=== PATIENT | female | born 1945 | race Caucasian/White ===

== ENCOUNTER 2021-11-16 20:13 | Emergency (ER) | payer OTHER ==
[2021-11-16] MEDS ORDERED: ONDANSETRON 4 MG (ODT) TAB ONE (22:09)
[2021-11-16 23:16] LABS: Urine Blood Negative (Negative); Urine Glucose Negative (Negative); Urine Protein Negative (Negative); Urine Specific Gravity 1.015 (1.005-1.030)
[2021-11-16] MEDS ORDERED: FAMOTIDINE 20 MG/2 ML VIAL IV ONE (23:26)
[2021-11-16] MEDS ORDERED: ONDANSETRON 4 MG/2 ML VIAL ONE (23:26)
[2021-11-16 23:31] LABS: Absolute Lymphocytes (CBC) 0.8 K/uL (0.7-4.9); Hematocrit 39.1 % (36.0-45.0); Lymphocytes % 8.5 % (15.3-44.8); MPV 7.8 fL (7.6-11.3); RBC Red Blood Cell Count 4.83 M/uL (3.86-4.86)
[2021-11-16 23:37] LABS: Protime INR 1.04
[2021-11-16 23:38] LABS: Barbiturates NEGATIVE (NEGATIVE); Benzodiazepines NEGATIVE (NEGATIVE); Cocaine NEGATIVE (NEGATIVE); METHAMPHETAM NEGATIVE (NEGATIVE); Methadone NEGATIVE (NEGATIVE); Opiates NEGATIVE (NEGATIVE); Phencyclidine NEGATIVE (NEGATIVE); THC Cannibis NEGATIVE (NEGATIVE)
[2021-11-16 23:51] LABS: ALT/SGPT 20 U/L (12-78); AST/SGOT 19 U/L (15-37); Albumin 3.6 g/dL (3.4-5.0); Alkaline Phosphatase 113 U/L (45-117); Amylase 39 U/L (25-115); BUN Blood Urea Nitrogen 12 mg/dL (7-18); Bicarbonate 25 mmol/L (21-32); Bilirubin Direct < 0.1 mg/dL (0-0.2); Bilirubin Total 0.4 mg/dL (0.2-1.0); CKMB Creatine Kinase MB 2.7 ng/mL (1.0-3.6); Creatine Phosphokinase 147 U/L (26-192); Glucose Level 126 mg/dL (74-106); Lipase 93 U/L (73-393); Magnesium 2.3 mg/dL (1.8-2.4); Potassium 3.6 mmol/L (3.5-5.1); Protein, Total 8.1 g/dL (6.4-8.2); Sodium Level 140 mmol/L (136-145)
[2021-11-17 00:16] LABS: SARS-COV-2 RT PCR NEGATIVE (NEGATIVE)
[2021-11-17] MEDS ORDERED: NA CHLORIDE 0.9% 500 ML ONE (01:15)
[2021-11-17] MEDS ORDERED: MAGNES/ALUMIN/SIMET 30ML UCUP ONE (01:43)
[2021-11-17] MEDS ORDERED: LIDOCAINE VISCOUS 2% SOLN 15 ML UDC ONE (01:44)
[2021-11-17] MEDS ORDERED: ACETAMINOPHEN 500 MG TAB ONE (02:49)
[2021-11-17 03:14] LABS: Troponin (Emerg Dept Use Only) < 0.02 ng/mL (0.0-0.045)
--- NOTE | 2021-11-17 03:46 | EDPHYS ---
Physician Documentation [facility] Name: Linette Andersen Age: 76 yrs Sex: Female : 1945 Arrival Date: 11/16/2021 Time: 20:17 Bed 23 Private MD: ED Physician Carlton Sanchez HPI: 11/16 22:57 This 76 yrs old Female presents to ER via Wheelchair with complaints of S/S of Possible mh7 Stroke. 22:57 The patient's problem is reported as altered mental status, confused, Memory loss. mh7 Onset: The symptoms/episode began/occurred today, at an unknown time. Duration: The episode is continuous. Context: the episode(s) was witnessed, by no one, symptoms became apparent at an unknown time, occurred at home, occurred while the patient was crying, Possible contributing factors include: Family member recent illness. The symptoms are alleviated by nothing. The symptoms are aggravated by nothing. Associated signs and symptoms: Pertinent positives: confusion, nausea, vomiting, Pertinent negatives: abdominal pain, agitation, ataxia, blurred vision, chest pain, combativeness, diaphoresis, diarrhea, dizziness, headache, lightheadedness, numbness, palpitations, seizure, tingling, vertigo, weakness. Severity of symptoms: At their worst the symptoms were moderate today, in the emergency department the symptoms are unchanged. According to family they received news today that patient son will need a heart transplant. Patient became distraught and had been crying since that time earlier today. Sometime this evening became aware that patient was having memory problems and kept asking same questions over again multiple times. She also started having nausea and vomiting. She has had no weakness and is ambulating normally. Daughter reports a similar episode in the past approximately 5 to 6 years ago and a possible diagnosis of stroke at that time but she is unsure.. - Immunization history:: Client reports receiving the 2nd dose of the Covid vaccine. ROS: 22:57 Constitutional: Negative for fever, chills, and weight loss, Eyes: Negative for injury, mh7 pain, redness, and discharge, ENT: Negative for injury, pain, and discharge, Neck: Negative for injury, pain, and swelling, Cardiovascular: Negative for chest pain, palpitations, and edema, Respiratory: Negative for shortness of breath, cough, wheezing, and pleuritic chest pain, Back: Negative for injury and pain, : Negative for injury, bleeding, discharge, and swelling, MS/Extremity: Negative for injury and deformity, Skin: Negative for injury, rash, and discoloration, Psych: Negative for depression, anxiety, suicide ideation, homicidal ideation, and hallucinations, Allergy/Immunology: Negative for hives, rash, and allergies, Endocrine: Negative for neck swelling, polydipsia, polyuria, polyphagia, and marked weight changes, Hematologic/Lymphatic: Negative for swollen nodes, abnormal bleeding, and unusual bruising. 22:57 Neuro: Negative for dizziness, gait disturbance, headache, hearing loss, loss of consciousness, numbness, seizure activity, speech changes, syncope, near syncope, tingling, tinnitus, tremor, visual changes, weakness. Exam: 22:57 Constitutional: This is a well developed, well nourished patient who is awake, alert, mh7 and in no acute distress. Head/Face: Normocephalic, atraumatic. Eyes: Pupils equal round and reactive to light, extra-ocular motions intact. Lids and lashes normal. Conjunctiva and sclera are non-icteric and not injected. Cornea within normal limits. Periorbital areas with no swelling, redness, or edema. Neck: Trachea midline, no thyromegaly or masses palpated, and no cervical lymphadenopathy. Supple, full range of motion without nuchal rigidity, or vertebral point tenderness. No Meningismus. Chest/axilla: Normal chest wall appearance and motion. Nontender with no deformity. No lesions are appreciated. Cardiovascular: Regular rate and rhythm with a normal S1 and S2. No gallops, murmurs, or rubs. Normal PMI, no JVD. No pulse deficits. Respiratory: Lungs have equal breath sounds bilaterally, clear to auscultation and percussion. No rales, rhonchi or wheezes noted. No increased work of breathing, no retractions or nasal flaring. Abdomen/GI: Soft, non-tender, with normal bowel sounds. No distension or tympany. No guarding or rebound. No evidence of tenderness throughout. Back: No spinal tenderness. No costovertebral tenderness. Full range of motion. Skin: Warm, dry with normal turgor. Normal color with no rashes, no lesions, and no evidence of cellulitis. MS/ Extremity: Pulses equal, no cyanosis. Neurovascular intact. Full, normal range of motion. 22:57 Neuro: Orientation: to person, place \\T\\ time. Mentation: appropriate for stated age, Memory: remote memory is intact. recent memory is impaired, Cranial nerves: grossly normal, Cerebellar function: is grossly normal, Motor: is normal, Sensation: is normal, Gait: is steady, at a normal pace, without difficulty, seizure activity, is not displayed by the patient, Abnormal movements: there are no abnormal movements. 23:45 Radiologist reports: No acute findings [facility] Vital Signs: 21:16 BP 146 / 123; Pulse 108; Resp 20; Temp 98.3(O); Pulse Ox 98% ; Weight 72.57 kg (R); tt3 Height 5 ft. 3 in. (160.02 cm) (R); 11/17 00:45 BP 146 / 67; Pulse 98; Resp 18; Pulse Ox 97% ; john 02:44 BP 129 / 50; Pulse 88; Resp 18; Pulse Ox 96% ; Pain 8/10; john 04:03 BP 115 / 50; Pulse 95; Resp 14; Temp 98.5; Pulse Ox 97% on R/A; Pain 3/10; john 11/16 21:16 Body Mass Index 28.34 (72.57 kg, 160.02 cm) tt3 NIH Stroke Scale Scores: 04:09 NIHSS Score: 0 john MDM: 11/16 23:45 Physician consultation: Fransico Sanders MD was contacted at 23:40, regarding patient's [facility] condition, Discussed with Dr. Sanders, symptoms not seemingly related to stroke.. 11/17 03:38 Differential diagnosis: CVA, TIA, paralysis, metabolic disorder, drug effects. Data [facility] reviewed: vital signs, nurses notes, old medical records, lab test result(s), cardiac enzymes, CBC, drug level(s), acetaminophen, alcohol, salicylate, electrolytes, urinalysis, urine drug screen, EKG, radiologic studies, CT scan, plain films. Data interpreted: Pulse oximetry: on room air is 97 %. Interpretation: normal. Counseling: I had a detailed discussion with the patient and/or guardian regarding: the historical points, exam findings, and any diagnostic results supporting the discharge/admit diagnosis, the presence of at least one elevated blood pressure reading (>120/80) during this emergency department visit, lab results, radiology results, the need for outpatient follow up, to return to the emergency department if symptoms worsen or persist or if there are any questions or concerns that arise at home. Response to treatment: the patient's symptoms have resolved after treatment, the patient's blood pressure is in an acceptable range, mental status has returned to baseline, the patient no longer shows bradycardia, the patient is not short of breath, the patient is not tachycardic, the patient's pain is gone, the patient's temperature has normalized, the patient is now symptom free, patient is well hydrated. 03:43 ED course: Feels better, well-appearing, no acute distress, vitals are stable, no focal [facility] neurological deficits. Awake, alert, and oriented x4 and answering questions appropriately. No memory deficits or issues. Tolerating oral intake without difficulty. Denies any complaints at this time. She request to be discharged in the ED at this time with her daughter.. 03:46 Patient medically screened. [facility] 11/16 22:39 Order name: Amylase, Serum [facility] 11/16 22:39 Order name: Basic Metabolic Panel [facility] 11/16 22:39 Order name: CBC with Diff [facility] 11/16 22:39 Order name: CPK [facility] 11/16 22:39 Order name: Ckmb; Complete Time: 03:24 [facility] 11/16 22:39 Order name: Hepatic Function; Complete Time: 03:24 [facility] 11/16 22:39 Order name: Lipase; Complete Time: 03:24 [facility] 11/16 22:39 Order name: Magnesium; Complete Time: 03:24 [facility] 11/16 22:39 Order name: Protime (+inr); Complete Time: 23:46 [facility] 11/16 22:39 Order name: Ptt, Activated; Complete Time: 23:46 [facility] 11/16 22:39 Order name: Troponin (emerg Dept Use Only); Complete Time: 03:24 [facility] 11/16 22:39 Order name: UDS; Complete Time: 23:46 [facility] 11/16 22:39 Order name: Amylase; Complete Time: 03:24 [facility] 11/16 22:40 Order name: Basic Metabolic Panel; Complete Time: 03:24 [facility] 11/16 21:29 Order name: EKG - Nurse/Tech; Complete Time: 21:30 3 11/16 22:39 Order name: CT Stroke Brain w/o Contrast [facility] 11/16 22:39 Order name: Stroke CXR 1 View [facility] 11/16 22:39 Order name: EKG; Complete Time: 22:40 [facility] 11/16 22:40 Order name: CBC with Automated Diff; Complete Time: 23:46 [facility] 11/16 22:40 Order name: Creatine Phosphokinase; Complete Time: 03:24 [facility] 11/16 22:41 Order name: COVID-19/FLU A+B (Document "Date of Onset" if Symptomatic); Complete Time: [facility] 00:37 11/16 22:41 Order name: ETOH Level; Complete Time: 23:56 [facility] 11/16 22:41 Order name: Acetaminophen; Complete Time: 23:56 [facility] 11/16 22:41 Order name: Salicylate; Complete Time: 23:56 [facility] 11/16 23:15 Order name: Urine Dipstick-Ancillary; Complete Time: 23:20 [facility] 11/16 23:58 Order name: Glucose, Ancillary Testing; Complete Time: 00:37 [facility] 11/16 22:39 Order name: Accucheck; Complete Time: 23:43 [facility] 11/16 22:39 Order name: Cardiac monitoring; Complete Time: 23:43 [facility] 11/16 22:39 Order name: IV Saline Lock [facility] 11/16 22:39 Order name: Labs collected and sent [facility] 11/16 22:39 Order name: NPO [facility] 11/16 22:39 Order name: O2 Per Protocol [facility] 11/16 22:39 Order name: O2 Sat Monitoring [facility] 11/16 22:39 Order name: Stroke Swallow Screen [facility] 11/16 22:41 Order name: Urine Dipstick-Ancillary (obtain specimen); Complete Time: 23:42 [facility] Administered Medications: 11/16 23:41 Drug: Zofran (Ondansetron) 4 mg Route: IVP; Site: right antecubital; john 23:42 Drug: Pepcid (famotidine) 20 mg Route: IVP; Site: right antecubital; john 11/17 01:15 Drug: NS 0.9% 500 ml Route: IV; Rate: bolus; Site: right antecubital; john 02:52 Follow up: Response: No adverse reaction john 01:43 Drug: GI Cocktail without - (Maalox Suspension 30 ml, Lidocaine Liquid 2 % 15 john ml) Route: PO; 02:52 Follow up: Response: No adverse reaction; Nausea is decreased john Disposition Summary: 11/17/21 03:46 Discharge Ordered Location: Home [facility] Problem: new [facility] Symptoms: are resolved [facility] Condition: Stable [facility] Diagnosis - Transient global amnesia [facility] - Nausea with vomiting, unspecified [facility] Followup: [facility] - With: Private Physician - When: 1 - 2 days - Reason: Worsening of condition, Recheck today's complaints, Continuance of care, Re-evaluation by your physician Discharge Instructions: - Discharge Summary Sheet [facility] - Nausea and Vomiting, Adult, [id number] [facility] - Transient Global Amnesia [facility] Forms: - Medication Reconciliation Form [facility] - Thank You Letter [facility] - Antibiotic Education [facility] - Prescription Opioid Use [facility] Prescriptions: - ondansetron 4 mg Oral tablet,disintegrating - place 1 tablet by TRANSLINGUAL route every 8 hours As needed; 10 tablet; [facility] Refills: 0, Product Selection Permitted NIH Stroke Scale - NIH Stroke Score Date: 11/17/2021 Time: 04:09 Total Score = 0 1a. Level of Consciousness (LOC) - 0(Alert) 1b. Level of Consciousness (LOC) (Month \\T\\ Age) - 0(Both) 1c. LOC Commands (Open \\T\\ Closes Eyes/Chief Scientist) - 0(Both) 2. Best Gaze (Lateral Gaze Paresis) - 0(Normal) 3. Visual Field Loss - 0(No visual loss) 4. Facial Palsy - 0(Normal) 5a. Left Arm: Motor (10-second hold) - 0(No drift) 5b. Right Arm: Motor (10-second hold) - 0(No drift) 6a. Left Leg: Motor (5-second hold - always test supine) - 0(No drift) 6b. Right Leg: Motor (5-second hold - always test supine) - 0(No drift) 7. Limb Ataxia (finger/nose \\T\\ heel/yadav - test with eyes open) - 0(Absent) 8. Sensory Loss (pinprick arms/legs/face) - 0(Normal) 9. Best Language: Aphasia (description/naming/reading) - 0(No aphasia) 10. Dysarthria (speech clarity - read or repeat words) - 0(Normal) 11. Extinction and Inattention (visual/tactile/auditory/spatial/personal) - 0(No abnormality) Initials: john Signatures: Dispatcher [employer] Carlton Amaro MD MD mh7 Misael Shcofield tt3 Angie Hwang RN RN john
--- NOTE | 2021-11-17 03:46 | ER ---
Nurse's Notes [facility] Name: Linette Andersen Age: 76 yrs Sex: Female : 1945 Arrival Date: 11/16/2021 Time: 20:17 Bed 23 Private MD: Diagnosis: Transient global amnesia;Nausea with vomiting, unspecified Presentation: 11/16 22:20 Chief complaint: Patient's son or daughter states: pt is acting like she did in the bb past when she had a stroke she is repeating herself over and over and she is vomiting. Coronavirus screen: At this time, the client does not indicate any symptoms associated with coronavirus-19. Ebola Screen: No symptoms or risks identified at this time. 22:20 Method Of Arrival: Wheelchair bb 11/17 04:06 Acuity: OSIRIS 2 john 04:06 No acute neurological deficit is noted. john 04:08 Risk Assessment: Do you want to hurt yourself or someone else? Patient reports no john desire to harm self or others. 04:09 Initial Sepsis Screen: Does the patient meet any 2 criteria? No. Patient's initial john sepsis screen is negative. 04:10 Onset of symptoms was November 16, 2021. john Triage Assessment: 04:07 General: Appears in no apparent distress. Behavior is calm, cooperative, appropriate john for age. Pain: Denies pain. Neuro: No deficits noted. 04:07 The onset of the patients symptoms was November 16, 2021 at 21:30. john 04:11 Neuro: No deficits noted. Reports. john - Immunization history:: Client reports receiving the 2nd dose of the Covid vaccine. Screenin:06 Abuse screen: Denies threats or abuse. Denies injuries from another. Nutritional john screening: No deficits noted. Tuberculosis screening: No symptoms or risk factors identified. Fall Risk None identified. Assessment: 01:48 General: I recv'd the pt from Triage \\T\\ 2238 and a Code Stroke was called \\T\\ 2245. The pt john is AAOx3. Her daughter, at bedside, reports that she recv'd "bad news" about her son and "totally lost it". The pt now reports that she was at the hospital with him, in [place], and "kept getting off and on the elevator, because I didn't know where I was". The pt remains AAOx3 She ambulates with a steady gait and has no neuro deficits. VS are unremarkable and the pt remains on the bedside monitor. She did "dry heave" and was medicated. The pt now reports,"it's yaa my mind just couldn't take it". She reports, as well does her daughter,"she's her old self", now. She has been given a GI cocktail and we are awaiting dispo. . 02:50 General: The pt c/o a "really bad headache" and was medicated with Tylenol 1 gm. She john had no difficulty swallowing and she is in NAD. Daughter remains at bedside. . 03:27 Patient has been NPO before screening. The patient is alert, and able to follow john commands. The patient does not exhibit slurred or garbled speech. The patient is not exhibiting difficulty speaking. The patient does not exhibit difficulty understanding words. The patient is unable to swallow own secretions without drooling or the need for suction. Patient tolerated one teaspoon of water. No drooling, immediate coughing, gurgling, or clearing of the throat was noted. 04:03 General: The pt reports that her hanley has improved, but "is still there". She is in NAD. john The pt's daughter, at bedside, has called for their ride home, as the pt has been discharged. . 04:10 The patient passed the bedside swallow screening. Oral medications may be given as john ordered. Contact Physician for further diet orders. Vital Signs: 11/16 21:16 BP 146 / 123; Pulse 108; Resp 20; Temp 98.3(O); Pulse Ox 98% ; Weight 72.57 kg (R); tt3 Height 5 ft. 3 in. (160.02 cm) (R); 11/17 00:45 BP 146 / 67; Pulse 98; Resp 18; Pulse Ox 97% ; john 02:44 BP 129 / 50; Pulse 88; Resp 18; Pulse Ox 96% ; Pain 8/10; john 04:03 BP 115 / 50; Pulse 95; Resp 14; Temp 98.5; Pulse Ox 97% on R/A; Pain 3/10; john 11/16 21:16 Body Mass Index 28.34 (72.57 kg, 160.02 cm) tt3 NIH Stroke Scale Scores: 04:09 NIHSS Score: 0 john ED Course: 11/16 20:17 Patient arrived in ED. wm 21:30 EKG done, by ED staff, reviewed by Carlton Sanchez MD. tt3 22:20 Arm band placed on Patient placed in an exam room, on a stretcher, on pulse oximetry. bb Family accompanied patient. 22:24 Carlton Sanchez MD is Attending Physician. 7 22:55 Stroke CXR 1 View In Process Unspecified. EDMS 22:56 CT Stroke Brain w/o Contrast In Process Unspecified. EDMS 23:23 Angie Hwang, RN is Primary Nurse. john 23:42 Salicylate Sent. john 23:42 ETOH Level Sent. john 23:42 Acetaminophen Sent. john 23:42 COVID-19/FLU A+B (Document "Date of Onset" if Symptomatic) Sent. john 23:42 Creatine Phosphokinase Sent. john 23:42 Basic Metabolic Panel Sent. john 23:42 Amylase Sent. john 23:42 Amylase, Serum Sent. john 23:42 Basic Metabolic Panel Sent. john 23:42 CBC with Diff Sent. john 23:43 CPK Sent. john 23:43 Ckmb Sent. john 23:43 Hepatic Function Sent. john 23:43 Lipase Sent. john 23:43 Magnesium Sent. john 23:43 Troponin (emerg Dept Use Only) Sent. john 11/17 04:06 Triage completed. john 04:07 No provider procedures requiring assistance completed. intact, bleeding controlled, No john redness/swelling at site. Pressure dressing applied. Administered Medications: 11/16 23:41 Drug: Zofran (Ondansetron) 4 mg Route: IVP; Site: right antecubital; john 23:42 Drug: Pepcid (famotidine) 20 mg Route: IVP; Site: right antecubital; john 11/17 01:15 Drug: NS 0.9% 500 ml Route: IV; Rate: bolus; Site: right antecubital; john 02:52 Follow up: Response: No adverse reaction john 01:43 Drug: GI Cocktail without - (Maalox Suspension 30 ml, Lidocaine Liquid 2 % 15 john ml) Route: PO; 02:52 Follow up: Response: No adverse reaction; Nausea is decreased john Outcome: 03:46 Discharge ordered by . [facility] 04:07 Condition: stable john 04:08 Discharge instructions given to patient, family, Instructed on discharge instructions, john follow up and referral plans. Prescriptions given X 1. 04:09 Discharged to home ambulatory, with family. john 04:28 Patient left the ED. john NIH Stroke Scale - NIH Stroke Score Date: 11/17/2021 Time: 04:09 Total Score = 0 1a. Level of Consciousness (LOC) - 0(Alert) 1b. Level of Consciousness (LOC) (Month \\T\\ Age) - 0(Both) 1c. LOC Commands (Open \\T\\ Closes Eyes/Truck Farmer) - 0(Both) 2. Best Gaze (Lateral Gaze Paresis) - 0(Normal) 3. Visual Field Loss - 0(No visual loss) 4. Facial Palsy - 0(Normal) 5a. Left Arm: Motor (10-second hold) - 0(No drift) 5b. Right Arm: Motor (10-second hold) - 0(No drift) 6a. Left Leg: Motor (5-second hold - always test supine) - 0(No drift) 6b. Right Leg: Motor (5-second hold - always test supine) - 0(No drift) 7. Limb Ataxia (finger/nose \\T\\ heel/yadav - test with eyes open) - 0(Absent) 8. Sensory Loss (pinprick arms/legs/face) - 0(Normal) 9. Best Language: Aphasia (description/naming/reading) - 0(No aphasia) 10. Dysarthria (speech clarity - read or repeat words) - 0(Normal) 11. Extinction and Inattention (visual/tactile/auditory/spatial/personal) - 0(No abnormality) Initials: john Signatures: Dispatcher [employer] Angie Bland, RN RN Carlton Kaufman MD MD mh7 Misael Schofield3 Elisabet Ventura Brenda, RN RN bo
[2021-11-17 04:39] VITALS: BP 115/50; TEMP 98.5; O2SAT 97
--- NOTE | 2021-11-17 08:17 | RAD REPORT ---
EXAM DESCRIPTION: RAD - Chest Single View - 11/16/2021 10:55 pm CLINICAL HISTORY: Confusion, shortness of breath COMPARISON: August 2019 TECHNIQUE: AP portable chest image was obtained 11/16/2021 10:55 pm . FINDINGS: Lungs are clear. Interstitial pattern matches comparison. Right hemidiaphragm elevation an d eventration noted, stable. Heart and vasculature are normal. No measurable pleural effusion and no pneumothorax. No acute bony abnormality seen. No acute aortic findings suspected. IMPRESSION: No acute cardiopulmonary process. No significant change from comparison study.
--- NOTE | 2021-11-17 17:34 | RAD REPORT ---
EXAM DESCRIPTION: CT - Ct Stroke Brain Wo Cont - 11/17/2021 6:48 am ADDENDUM #1 THIS REPORT CONTAINS FINDINGS THAT MAY BE CRITICAL TO PATIENT CARE: The findings were verbally discus sed via telephone conference with Dr. Sanchez by Dr. Bautista at 2320 hours central time on November 16. The results were acknowledged and understood. Electronically signed by: Shorty Bautista MD 11/16/2021 11:20 PM [employer] End of Addendum EXAM DESCRIPTION: Ct Stroke Brain Wo Cont CLINICAL HISTORY: CONFUSED COMPARISON: None Available. TECHNIQUE: Multiple helical axial tomographic images were obtained of the head without intravenous c ontrast. This exam was performed according to our departmental dose-optimization program, which inclu simon automated exposure control, adjustment of the mA and/or kV according to patient size and/or use o f iterative reconstruction technique. FINDINGS: There is no acute intracranial hemorrhage. No mass. No midline shift. No ventriculomegaly. Sanchez-white matter differentiation is maintained. Paranasal sinuses are clear. Mastoid air cells and middle ear spaces are clear. Postoperative changes of the globes noted. Osseous structures are unremarkable. Surrounding soft tissues are unremarkable. IMPRESSION: No acute intracranial process. Electronically signed by: Shorty Bautista MD 11/16/2021 11:12 PM [employer] Due to temporary technical issues with the PACS/Fluency reporting system, reports are being signed by the in house radiologists without review as a courtesy to insure prompt reporting. The interpreting radiologist is fully responsible for the content of the report.
== END 2021-11-17 04:28 | disposition home or self-care (01) ==
LOC: ER 20:13
DX: G45.4 Transient global amnesia (principal); R11.2 Nausea with vomiting, unspecified; Z20.822 Contact with and (suspected) exposure to COVID-19
CPT/HCPCS: 93005 ×2; 85025; 80048; 36415; 80320; 82150; 83735; 82550; 80329 ×2; 85610; 82947; 80076; 85730; 81003; 84484; 82553; 83690; 0240U; 80307; 70450; 71045; 96375; 96374; 99284; J7040; J2405

== ENCOUNTER 2024-11-15 18:37 | Emergency (ER) | payer OTHER ==
[2024-11-15 20:36] LABS: Absolute Eosinophils 0.2 K/uL (0-0.5); Absolute Neutrophil 6.4 K/uL (1.8-8.0); Basophils % 0.5 % (0-1.3); Eosinophils % 1.6 % (0-4.4); Hemoglobin 13.3 g/dL (12.0-15.0); Lymphocytes % 20.6 % (15.3-44.8); MCH 25.8 pg (27.0-35.0); MCHC 32.4 g/dL (32.0-36.0); MCV 79.4 fL (80-100); MPV 6.8 fL (7.6-11.3); Monocytes % 10.5 % (3.3-12.3); Neutrophils % 66.8 % (41.7-73.7); Nucleated Red Blood Cells % 0.1 % (0-0); Platelets 418 thou/uL (152-406); RBC Red Blood Cell Count 5.16 M/uL (3.86-4.86); Red Cell Distribution Width 17.6 % (12.1-15.2)
--- NOTE | 2024-11-15 20:50 | RAD REPORT ---
EXAMINATION: CT CERVICAL SPINE WITHOUT CONTRAST CLINICAL INDICATION: Female, 79 years old. PAIN TECHNIQUE: Axial CT images through the cervical spine were obtained without intravenous contrast. Sag ittal and coronal reformatted images were created from the data set. One or more of the following dose reduction techniques were used: Automated exposure control, adjustment of the mA and/or kV accor ding to patient size, and/or iterative reconstruction. Unless otherwise specified, incidental findings do not require dedicated imaging follow-up. [id number]. COMPARISON: 05/12/2009 FINDINGS: ALIGNMENT: Trace anterolisthesis C3 on C4. This is likely related to underlying degenerative changes. BONE: Vertebral body heights are maintained. No aggressive osseous lesions. DISCS: Mild to moderate disc height loss at C3-4 and C6-7. LEVELS: Very degrees of neural foraminal narrowing noted bilaterally. This is most pronounced on the left at C2-3, C3-4, C4-5. No high-grade central spinal stenosis. SOFT TISSUE: No significant abnormalities in the soft tissue of the neck. The visualized lung apices are clear. IMPRESSION: No acute cervical spine abnormalities. Cervical spondylosis with evidence of predominantly left-sided neural foraminal narrowing.
[2024-11-15 20:53] LABS: Albumin 3.3 g/dL (3.4-5.0); Albumin/Globulin Ratio 0.7 (1.1-1.8); Anion Gap 8.2 mEq/L (5.0-15.0); Bilirubin Total 0.2 mg/dL (0.2-1.0); Globulin 4.8 g/dL (2.3-3.5); Potassium 4.2 mEq/L (3.5-5.1); Protein, Total 8.1 g/dL (6.4-8.2)
[2024-11-15] MEDS ORDERED: ONDANSETRON 4 MG/2 ML VIAL ONE (21:02)
[2024-11-15] MEDS ORDERED: FENTANYL CITR 100 MCG/2 ML ONE ×2 (21:03→21:57)
[2024-11-15] MEDS ORDERED: KETOROLAC 30 MG/ML INJ ONE (21:03)
[2024-11-15] MEDS ORDERED: NA CHLORIDE 0.9% 500 ML ONE (21:04)
[2024-11-15] MEDS ORDERED: DIAZEPAM 5 MG TABLET ONE (21:04)
[2024-11-15] MEDS ORDERED: dexAMETHasone 10 MG/ML VIAL ONE (21:56)
--- NOTE | 2024-11-15 21:59 | ER ---
Nurse's Notes [facility] Name: Linette Andersen Age: 79 yrs Sex: Female : 1945 Arrival Date: 11/15/2024 Time: 18:37 Bed 23 Private MD: Diagnosis: Strain of muscle, fascia and tendon at neck level, initial encounter;Unspecified symptoms and signs involving the musculoskeletal system Presentation: 11/15 19:23 Chief complaint: Patient states: Bilateral neck pain that radiates down to shoulders cm10 and to head onset 2 days ago. Pt states that movement makes the pain worse. Coronavirus screen: Client denies travel out of the [place] in the last 14 days. Ebola Screen: Patient denies travel to an Ebola-affected area in the 21 days before illness onset. No symptoms or risks identified at this time. Initial Sepsis Screen: Does the patient meet any 2 criteria? HR > 90 bpm. Does the patient have a suspected source of infection? No. Patient's initial sepsis screen is negative. Risk Assessment: Do you want to hurt yourself or someone else? Patient reports no desire to harm self or others. Onset of symptoms was November 13, 2024. 19:23 Method Of Arrival: Ambulatory cm10 19:23 Acuity: OSIRIS 4 cm10 Triage Assessment: 19:24 General: Appears in no apparent distress. comfortable, Behavior is calm, cooperative. cm10 Neuro: No deficits noted. Level of Consciousness is awake, alert, obeys commands, Oriented to person, place, time, situation, Appropriate for age. Respiratory: No deficits noted. Airway is patent Respiratory effort is even, unlabored, Respiratory pattern is regular, symmetrical. Historical: - Allergies: 19:23 No Known Allergies; cm10 - PMHx: 19:23 GERD; Anxiety; Hip Pain; cm10 - Immunization history:: Adult Immunizations up to date. - Infectious Disease History:: Denies. - Social history:: Smoking status: Patient denies any tobacco usage or history of. - Family history:: not pertinent. Screenin:30 [facility] ED Fall Risk Assessment (Adult) History of falling in the last 3 months, me1 including since admission No falls in past 3 months (0 pts) Confusion or Disorientation No (0 pts) Intoxicated or Sedated No (0 pts) Impaired Gait No (0 pts) Mobility Assist Device Used No (0 pt) Altered Elimination No (0 pt) Score/Fall Risk Level 0 - 2 = Low Risk Maintained a safe environment, Provided non-skid footwear, Hourly rounding (assess needs \T\ fall precautionary measures) done. Abuse screen: Denies threats or abuse. Nutritional screening: No deficits noted. Tuberculosis screening: No symptoms or risk factors identified. Assessment: 20:30 General: Appears uncomfortable, well groomed, well developed, well nourished, Behavior me1 is calm, cooperative, appropriate for age, Reports Bilateral neck pain that radiates down to shoulders and to head onset 2 days ago. Pt states that movement makes the pain worse. Pain: Complains of pain in back of neck Pain radiates to back of head and to bilateral shoulders. Pain: Pain currently is 10 out of 10 on a pain scale. Quality of pain is described as sharp, shooting, Pain began 2-3 days ago. Is continuous, Aggravated by movement. Neuro: Level of Consciousness is awake, alert, obeys commands, Oriented to person, place, time, situation, Appropriate for age. Cardiovascular: Patient's skin is warm and dry. Respiratory: Airway is patent Trachea midline Respiratory effort is even, unlabored, Respiratory pattern is regular, symmetrical. GI: No signs and/or symptoms were reported involving the gastrointestinal system. : No signs and/or symptoms were reported regarding the genitourinary system. EENT: No signs and/or symptoms were reported regarding the EENT system. Derm: Skin is intact, is healthy with good turgor, Skin is pink, warm \T\ dry. Musculoskeletal: Reports pain in back of neck. Vital Signs: 19:23 BP 124 / 87; Pulse 115; Resp 18; Temp 97.7(TE); Pulse Ox 96% on R/A; Weight 72.57 kg; cm10 Height 5 ft. 4 in. ; Pain 7/10; 21:00 BP 121 / 62; Pulse 80; Resp 16; Pulse Ox 96% on R/A; me1 21:52 Pain 4/10; me1 21:52 Pain 4/10; me1 21:52 Pain 4/10; me1 22:00 BP 122 / 69; Pulse 74; Resp 18; Temp 98.5(O); Pulse Ox 97% ; me1 19:23 Body Mass Index 27.46 (72.57 kg, 162.56 cm) cm10 19:23 Pain Scale: Adult cm10 21:52 Pain Scale: Adult me1 21:52 Pain Scale: Adult me1 21:52 Pain Scale: Adult me1 ED Course: 18:42 Patient arrived in ED. ra3 19:24 Triage completed. cm10 19:24 Arm band placed on right wrist. Patient placed in waiting room. cm10 20:06 Angelo Riley MD is Attending Physician. elizabeth 20:27 Inserted saline lock: 20 gauge in right antecubital area, using aseptic technique. rv1 Blood collected. Flushed with 10 mL NS. 20:27 Initial lab(s) drawn, by me, sent to lab. rv1 20:28 Kendra Conner, TARA is Primary Nurse. me1 20:30 Patient has correct armband on for positive identification. Bed in low position. Call me1 light in reach. Side rails up X2. Provided Education on: POC. Verbalized understanding.. Client placed on continuous cardiac and pulse oximetry monitoring. NIBP monitoring applied. Pulse ox on. NIBP on. 20:30 No provider procedures requiring assistance completed. me1 20:38 CT C Spine In Process Unspecified. EDMS 21:56 Fransico Sanders MD is Referral Physician. elizabeth 22:15 IV discontinued, intact, bleeding controlled, No redness/swelling at site. Pressure me1 dressing applied. Administered Medications: 21:13 Drug: NS 0.9% IV 500 ml IV at per protocol once; to be given as a bolus over 30 minutes me1 Route: IV; Rate: per protocol; Site: right antecubital; 21:52 Follow up: Response: No adverse reaction; IV Status: Completed infusion; IV Intake: me1 100ml 21:13 Drug: fentaNYL (PF) IM 25 mcg IM once Route: IM; Site: right deltoid; me1 21:52 Follow up: Pain 4/10 Adult; Response: No adverse reaction; Pain is decreased me1 21:13 Drug: Ondansetron IVP 4 mg IVP once; over 2 minutes Route: IVP; Site: right antecubital;me1 21:52 Follow up: Response: No adverse reaction; Nausea is decreased me1 21:13 Drug: Ketorolac IVP 15 mg IVP once Route: IVP; Site: right antecubital; me1 21:52 Follow up: Pain 4/10 Adult; Response: No adverse reaction; Pain is decreased me1 21:13 Drug: Diazepam PO 5 mg PO once Route: PO; me1 21:52 Follow up: Pain 4/10 Adult; Response: No adverse reaction; Pain is decreased me1 22:01 Drug: Decadron - Dexamethasone IVP 10 mg IVP once Route: IVP; Site: right antecubital; me1 22:06 Follow up: Response: No adverse reaction me1 22:01 Drug: fentaNYL (PF) IVP 25 mcg IVP once Route: IVP; Site: right antecubital; me1 22:06 Follow up: Response: No adverse reaction; Pain is decreased me1 Medication: 20:30 VIS not applicable for this client. me1 Intake: 21:52 IV: 100ml; Total: 100ml. me1 Outcome: 21:58 Discharge ordered by . elizabeth 22:15 Discharged to home ambulatory, with significant other, me1 22:15 Condition: stable 22:15 Discharge instructions given to patient, significant other, Instructed on discharge instructions, follow up and referral plans. medication usage, Demonstrated understanding of instructions, follow-up care, medications, Prescriptions given X 3, 22:15 Patient left the ED. me1 Signatures: Dispatcher [employer] EDAngelo León MD MD cha Villegas, Rebecca rv1 Eli Ribera RN RN cm10 Kendra Conner RN RN me1 Taylor Moreno ra3 Corrections: (The following items were deleted from the chart) 19:25 19:23 Chief complaint: Patient states: Bilateral neck pain that radiates down to cm10 shoulders and to head onset 2 days ago. cm10 21:48 19:23 Chief complaint: Patient states: Bilateral neck pain that radiates down to me1 shoulders and to head onset 2 days ago. Pt states that movement makes the pain worse. cm10
--- NOTE | 2024-11-15 21:59 | EDPHYS ---
Physician Documentation [facility] Name: Linette Andersen Age: 79 yrs Sex: Female : 1945 Arrival Date: 11/15/2024 Time: 18:37 Bed 23 Private MD: ED Physician Angelo Riley HPI: 11/15 21:51 This 79 yrs old Female presents to ER via Ambulatory with complaints of Neck elizabeth Pain, <24hrs Old. 21:51 The patient or guardian complains of decreased range of motion, pain, that is acute. elizabeth The symptoms are located at the cervical spine. Onset: The symptoms/episode began/occurred 3 day(s) ago. Context: The problem was sustained at an unknown location. Associated signs and symptoms: The patient has no apparent associated signs or symptoms. The pain does not radiate. Modifying factors: The symptoms are alleviated by remaining still, the symptoms are aggravated by movement. Severity of symptoms: At their worst the symptoms were mild, moderate, in the emergency department the symptoms are unchanged. The patient has not experienced similar symptoms in the past. Historical: - Allergies: 19:23 No Known Allergies; cm10 - PMHx: 19:23 GERD; Anxiety; Hip Pain; cm10 - Immunization history:: Adult Immunizations up to date. - Infectious Disease History:: Denies. - Social history:: Smoking status: Patient denies any tobacco usage or history of. - Family history:: not pertinent. ROS: 21:51 Constitutional: Negative for fever, chills, and weight loss, Eyes: Negative for injury, elizabteh pain, redness, and discharge, ENT: Negative for injury, pain, and discharge, Cardiovascular: Negative for chest pain, palpitations, and edema, Respiratory: Negative for shortness of breath, cough, wheezing, and pleuritic chest pain, Abdomen/GI: Negative for abdominal pain, nausea, vomiting, diarrhea, and constipation, Back: Negative for injury and pain, : Negative for injury, bleeding, discharge, and swelling, MS/Extremity: Negative for injury and deformity, Skin: Negative for injury, rash, and discoloration, Neuro: Negative for headache, weakness, numbness, tingling, and seizure, Psych: Negative for depression, anxiety, suicide ideation, homicidal ideation, and hallucinations, Allergy/Immunology: Negative for hives, rash, and allergies, Endocrine: Negative for neck swelling, polydipsia, polyuria, polyphagia, and marked weight changes, Hematologic/Lymphatic: Negative for swollen nodes, abnormal bleeding, and unusual bruising, 21:51 Neck: Positive for pain with movement, Exam: 21:51 Constitutional: This is a well developed, well nourished patient who is awake, alert, elizabeth and in no acute distress. Head/Face: Normocephalic, atraumatic. Eyes: Pupils equal round and reactive to light, extra-ocular motions intact. Lids and lashes normal. Conjunctiva and sclera are non-icteric and not injected. Cornea within normal limits. Periorbital areas with no swelling, redness, or edema. ENT: Nares patent. No nasal discharge, no septal abnormalities noted. Tympanic membranes are normal and external auditory canals are clear. Oropharynx with no redness, swelling, or masses, exudates, or evidence of obstruction, uvula midline. Mucous membranes moist. Chest/axilla: Normal chest wall appearance and motion. Nontender with no deformity. No lesions are appreciated. Cardiovascular: Regular rate and rhythm with a normal S1 and S2. No gallops, murmurs, or rubs. Normal PMI, no JVD. No pulse deficits. Respiratory: Lungs have equal breath sounds bilaterally, clear to auscultation and percussion. No rales, rhonchi or wheezes noted. No increased work of breathing, no retractions or nasal flaring. Abdomen/GI: Soft, non-tender, with normal bowel sounds. No distension or tympany. No guarding or rebound. No evidence of tenderness throughout. Back: No spinal tenderness. No costovertebral tenderness. Full range of motion. Skin: Warm, dry with normal turgor. Normal color with no rashes, no lesions, and no evidence of cellulitis. MS/ Extremity: Pulses equal, no cyanosis. Neurovascular intact. Full, normal range of motion., bilateral aka Neuro: Awake and alert, GCS 15, oriented to person, place, time, and situation. Cranial nerves II-XII grossly intact. Motor strength 5/5 in all extremities. Sensory grossly intact. Cerebellar exam normal. Normal gait. Psych: Awake, alert, with orientation to person, place and time. Behavior, mood, and affect are within normal limits. 21:51 Neck: External neck: is normal, ROM/movement: limited range of motion, that is mild, that is moderate, in any direction, Meningeal signs: are not present, Kernig's sign is negative, Brudzinski's sign is negative, nuchal rigidity, is not appreciated, Lymph nodes: no appreciated lymphadenopathy, Vital Signs: 19:23 BP 124 / 87; Pulse 115; Resp 18; Temp 97.7(TE); Pulse Ox 96% on R/A; Weight 72.57 kg; cm10 Height 5 ft. 4 in. ; Pain 7/10; 21:00 BP 121 / 62; Pulse 80; Resp 16; Pulse Ox 96% on R/A; me1 21:52 Pain 4/10; me1 21:52 Pain 4/10; me1 21:52 Pain 4/10; me1 22:00 BP 122 / 69; Pulse 74; Resp 18; Temp 98.5(O); Pulse Ox 97% ; me1 19:23 Body Mass Index 27.46 (72.57 kg, 162.56 cm) cm10 19:23 Pain Scale: Adult cm10 21:52 Pain Scale: Adult me1 21:52 Pain Scale: Adult me1 21:52 Pain Scale: Adult me1 MDM: 20:05 Medical Screening Exam initiated elizabeth 20:16 Medical Screening Exam initiated elizabeth 21:53 Differential diagnosis: arthritis, C-Spine Fracture Cervical Disc Herniation Cervical elizabeth Facet Syndrome Cervical Raiculopathy Cervical Spondylosis cervical strain, Degenerative Disc Disease fracture, Neck Contusion Osteoarthritis Spinal Cord Compression Spondylosis Thoracic Outlet Syndrome torticollis, Unstable Vertebral Fracture Vertical Compression Injury viral meningitis, Whiplash Injury. Data reviewed: vital signs, nurses notes, lab test result(s), radiologic studies, CT scan. Consideration of Admission/Observation Escalation of care including admission/observation considered. I considered the following discharge prescriptions or medication management in the emergency department Medications were administered in the Emergency Department. See MAR. Independent interpretation of the following test(s) in the Emergency Department CT Scan: My interpretation is ct c spine. Test considered but Not performed: MRI: no mri c spine. Historians other than the Patient: Family Member: family well informed. Care significantly affected by the following chronic conditions: anxiety, hip pain, gerd. Counseling: I had a detailed discussion with the patient and/or guardian regarding the historical points, exam findings, and any diagnostic results supporting the discharge/admit diagnosis, lab results, radiology results, the need for outpatient follow up, for definitive care, a family practitioner, a neurologist. 11/15 20:07 Order name: CBC with Diff; Complete Time: 21:41 elizabeth 11/15 20:07 Order name: CMP; Complete Time: 21:41 elizabeth 11/15 20: Order name: CT C Spine; Complete Time: 21:41 elizabeth Administered Medications: 21:13 Drug: NS 0.9% IV 500 ml IV at per protocol once; to be given as a bolus over 30 minutes me1 Route: IV; Rate: per protocol; Site: right antecubital; 21:52 Follow up: Response: No adverse reaction; IV Status: Completed infusion; IV Intake: me1 100ml 21:13 Drug: fentaNYL (PF) IM 25 mcg IM once Route: IM; Site: right deltoid; me1 21:52 Follow up: Pain 4/10 Adult; Response: No adverse reaction; Pain is decreased me1 21:13 Drug: Ondansetron IVP 4 mg IVP once; over 2 minutes Route: IVP; Site: right antecubital;me1 21:52 Follow up: Response: No adverse reaction; Nausea is decreased me1 21:13 Drug: Ketorolac IVP 15 mg IVP once Route: IVP; Site: right antecubital; me1 21:52 Follow up: Pain 4/10 Adult; Response: No adverse reaction; Pain is decreased me1 21:13 Drug: Diazepam PO 5 mg PO once Route: PO; me1 21:52 Follow up: Pain 4/10 Adult; Response: No adverse reaction; Pain is decreased me1 22:01 Drug: Decadron - Dexamethasone IVP 10 mg IVP once Route: IVP; Site: right antecubital; me1 22:06 Follow up: Response: No adverse reaction me1 22:01 Drug: fentaNYL (PF) IVP 25 mcg IVP once Route: IVP; Site: right antecubital; me1 22:06 Follow up: Response: No adverse reaction; Pain is decreased me1 Disposition Summary: 11/15/24 21:58 Discharge Ordered Notes: Location: Home elizabeth Problem: new elizabeth Symptoms: have improved elizabeth Condition: Stable elizabeth Diagnosis - Strain of muscle, fascia and tendon at neck level, initial encounter elizabeth - Unspecified symptoms and signs involving the musculoskeletal system elizabeth Followup: elizabeth - With: Private Physician - When: 2 - 3 days - Reason: Recheck today's complaints, Re-evaluation by your physician Followup: elizabeth - With: Fransico Sanders MD - When: 2 - 3 days - Reason: Recheck today's complaints, Re-evaluation by your physician Discharge Instructions: - Discharge Summary Sheet elizabeth - Cervical Radiculopathy elizabeth - Muscle Strain elizabeth - Musculoskeletal Pain elizabeth - Cervical Sprain elizabeth - Cervical Sprain, [id number] elizabeth - Muscle Strain, [id number] elizabeth - Cervical Radiculopathy, [id number]-[id number] elizabeth Forms: - Medication Reconciliation Form elizabeth - Antibiotic Education elizabeth - Prescription Opioid Use elizabeth - Patient Portal Instructions elizabeth - Leadership Thank You Letter [facility] Prescriptions: - diclofenac sodium 25 mg Oral tablet, delayed release (enteric coated) - take 1 tablet ORAL route every 8 hours; 21 tablet; Refills: 0, Product elizabeth Selection Permitted - Medrol (Russel) 4 mg Oral Tablets, Dose Pack - take 1 tablet ORAL route as directed - follow package instructions; 1 packet; elizabeth Refills: 0, Product Selection Permitted - methocarbamol 500 mg Oral tablet - take 3 tablets ORAL route 4 times per day for 5 days; 20 tablet; Refills: 0, [facility] Product Selection Permitted Signatures: Dispatcher [employer] Angelo Rodriguez MD MD cha Martinez, Clarissa, RN RN cm10 Kendra Conner, RN RN me1 Corrections: (The following items were deleted from the chart) 20:08 20:08 CBC+H.LAB.BRZ ordered. EDMS EDMS 20:08 20:08 COMPREHENSIVE METABOLIC PANEL+C.LAB.BRZ ordered. EDMS EDMS 20:08 20:08 C Spine Wo Con+CT.RAD.BRZ ordered. EDMS EDMS
[2024-11-16 05:46] VITALS: BP 122/69; TEMP 98.5; O2SAT 97
== END 2024-11-15 22:15 | disposition home or self-care (01) ==
LOC: ER 18:37
DX: S16.1XXA Strain of muscle, fascia and tendon at neck level, initial encounter (principal); R29.91 Unspecified symptoms and signs involving the musculoskeletal system; K21.9 Gastro-esophageal reflux disease without esophagitis; F41.9 Anxiety disorder, unspecified; X58.XXXA Exposure to other specified factors, initial encounter
CPT/HCPCS: 96361; 85025; 36415; 80053; 72125; 96375; 96372; 96374; 99284; J3010 ×2; J1100; J2405; J7040

== ENCOUNTER 2025-02-09 16:15 | Observation (INO) | payer OTHER ==
[2025-02-09] MEDS ORDERED: HYDROMORPHONE HCL 1 MG/ML INJ IV PRN (16:52)
[2025-02-09] MEDS ORDERED: FLU (Fluarix Triv) TS24-25(6MOS UP)/PF 45 MCG/0.5 ML Syringe IM ONE (17:00)
[2025-02-09] MEDS ORDERED: ONDANSETRON 4 MG/2 ML VIAL IV PRN (17:00)
[2025-02-09] MEDS ORDERED: DIPHENHYDRAMINE 25 MG TAB/CAP PO PRN (17:00)
[2025-02-09] MEDS ORDERED: ACETAMINOPHEN 325 MG TABLET PO PRN (17:00)
[2025-02-09] MEDS ORDERED: POLYETHYL GLY 3350 17 GM/DOSE PO PRN (17:00)
[2025-02-09] MEDS ORDERED: PNEUMOCOCCAL VACCINE 0.5 ML IMVAC ONE (17:00)
[2025-02-09] MEDS: CIPROFLOXACIN 400 MG/200 ML IVPB IV SCH (17:00)
[2025-02-09] MEDS ORDERED: LOPERAMIDE HCL 2 MG CAPSULE PO PRN (17:00)
[2025-02-09] MEDS ORDERED: ONDANSETRON 4 MG (ODT) TAB PO PRN (17:00)
[2025-02-09 17:47] VITALS: BMI 28.8
[2025-02-09 18:36] LABS: Absolute Basophils 0.1 K/uL (0-0.5); Absolute Eosinophils 0.4 K/uL (0-0.5); Absolute Lymphocytes (CBC) 2.4 K/uL (0.7-4.9); Absolute Monocytes 1.2 K/uL (0.1-1.3); Absolute Neutrophil 4.9 K/uL (1.8-8.0); Basophils % 1.2 % (0-1.3); Hemoglobin 11.9 g/dL (12.0-15.0); Lymphocytes % 27.2 % (15.3-44.8); MCH 25.4 pg (27.0-35.0); MCHC 32.1 g/dL (32.0-36.0); MCV 79.3 fL (80-100); MPV 7.4 fL (7.6-11.3); Monocytes % 13.4 % (3.3-12.3); Neutrophils % 54.2 % (41.7-73.7); Nucleated Red Blood Cells % 0.1 % (0-0); Platelets 155 thou/uL (152-406); RBC Red Blood Cell Count 4.67 M/uL (3.86-4.86)
[2025-02-09] MEDS: NACHLORIDE 0.45% 1,000 ML IV SCH (18:43)
[2025-02-09] MEDS: METRONIDAZOLE 500mg IVPB 500 MG/100 ML BAG IV SCH (18:43)
[2025-02-09 18:53] LABS: Specific Gravity 1.016 (1.005-1.030); Urine Bilirubin NEGATIVE (Negative); Urine Blood Negative (Negative); Urine Clarity Clear (Clear); Urine Color Yellow (Yellow); Urine Glucose NEGATIVE (Negative); Urine Ketones NEGATIVE (Negative); Urine Microscopic Reflex YN NO UMIC; Urine Nitrite NEGATIVE (Negative); Urine Protein NEGATIVE (Negative); Urine Urobilinogen Normal (Normal)
[2025-02-09 19:01] LABS: ALT/SGPT 19 U/L (13-56); AST/SGOT 24 U/L (15-37); Albumin 3.4 g/dL (3.4-5.0); Albumin/Globulin Ratio 0.9 (1.1-1.8); Alkaline Phosphatase 109 U/L (45-117); Anion Gap 9.1 mEq/L (5.0-15.0); BUN Blood Urea Nitrogen 27 mg/dL (7-18); Bicarbonate 28 mEq/L (21-32); Bilirubin Direct < 0.2 mg/dL (0-0.2); Bilirubin Total 0.4 mg/dL (0.2-1.0); Globulin 3.8 g/dL (2.3-3.5); Glomerular Filtration Rate 54 ml/min (=/>90); Glucose Level 99 mg/dL (74-106); Phosphorus 3.9 mg/dL (2.5-4.9); Potassium 4.1 mEq/L (3.5-5.1); Protein, Total 7.2 g/dL (6.4-8.2); Sodium Level 137 mEq/L (136-145)
[2025-02-09 19:02] LABS: Bilirubin Indirect, Calculated 0.2 mg/dL (0.2-0.8); Magnesium 2.2 mg/dL (1.6-2.4)
--- NOTE | 2025-02-09 20:33 | RAD REPORT ---
Procedure: Chest Pa And Lat (2 Views) HISTORY: Abdominal pain COMPARISON: 2020 FINDINGS: The lungs appear clear of acute infiltrate. No significant pleural effusion noted. The heart is normal size. Prominent opacity lower posterior right hemithorax represents a diaphragmatic hernia.
--- NOTE | 2025-02-09 20:49 | RAD REPORT ---
EXAMINATION: CT ABDOMEN AND PELVIS WITH CONTRAST CLINICAL INDICATION: Abdominal pain TECHNIQUE: CT abdomen and pelvis was performed, after the administration of 100 cc Isovue-300.. Sagit heber and coronal reconstructions were obtained. One or more of the following dose reduction techniques were used: Automated exposure control, adjustment of the mA and kV according to patient si ze, and iterative reconstruction. Unless otherwise specified, incidental findings do not require dedicated imaging follow-up. [id number]. Oral contrast was not given which limits evaluation of bowel and appendix. COMPARISON: .None FINDINGS: Right posterior diaphragmatic hernia contains fat. The right ureteral pelvic junction and proximal ri ght ureter extended superiorly into the hernia within the lower right chest. This results in an obstruction and moderate right hydronephrosis and marked dilatation of the proximal right ureter. The mid ureter that extends inferiorly and is of normal caliber. There is diminished concentration of contrast within the right kidney when compared to the left. Liver, spleen, pancreas, right adrenal and left kidney unremarkable 2.3 cm left adrenal mass Hounsfield unit 57. Hysterectomy. No evidence of diverticulitis. Hysterectomy. No adnexal mass : IMPRESSION: Right ureteral pelvic junction and proximal right ureter enter a Bochdalek hernia within the lower po sterior right chest. The right ureter is obstructed resulting in moderate right hydronephrosis and marked dilatation of the proximal right ureter. 2.3 cm left adrenal mass probably as an adenoma. A nonemergent MRI of the adrenal gland is marti d.
[2025-02-10 03:55] LABS: Thyroid Stimulating Hormone 1.19 uIU/mL (0.358-3.740)
[2025-02-10 04:36] VITALS: TEMP 97.6
[2025-02-10 06:55] LABS: Absolute Basophils 0.1 K/uL (0-0.5); Absolute Eosinophils 0.3 K/uL (0-0.5); Absolute Lymphocytes (CBC) 1.9 K/uL (0.7-4.9); Absolute Monocytes 0.9 K/uL (0.1-1.3); Absolute Neutrophil 2.8 K/uL (1.8-8.0); Basophils % 0.9 % (0-1.3); Eosinophils % 4.6 % (0-4.4); Hemoglobin 10.9 g/dL (12.0-15.0); Lymphocytes % 31.8 % (15.3-44.8); MCH 25.8 pg (27.0-35.0); MCHC 33.1 g/dL (32.0-36.0); MCV 77.9 fL (80-100); MPV 7.3 fL (7.6-11.3); Monocytes % 15.3 % (3.3-12.3); Neutrophils % 47.4 % (41.7-73.7); Nucleated Red Blood Cells % 0.1 % (0-0); Platelets 348 thou/uL (152-406); RBC Red Blood Cell Count 4.23 M/uL (3.86-4.86); Red Cell Distribution Width 17.5 % (12.1-15.2)
[2025-02-10 07:03] LABS: PT Prothrombin Time 12.7 SECONDS (10-13.0); PTT, Activated Partial Thromb 29.6 SECONDS (27.2-37.4); Protime INR 1.12
[2025-02-10 07:04] LABS: Anion Gap 7.7 mEq/L (5.0-15.0); Magnesium 2.2 mg/dL (1.6-2.4); Potassium 3.7 mEq/L (3.5-5.1)
[2025-02-10 08:01] VITALS: BP 102/49
[2025-02-10] MEDS: ENOXAPARIN 40 MG/0.4 ML SQ SCH (09:00)
--- NOTE | 2025-02-10 11:57 | P.DS ---
Admission Date: 02/09/25 Discharge Date: 02/10/25 Disposition: ROUTINE DISCHARGE Brief History of Present Illness: MALICK COMES WITH ACUTE PAIN IN RIGHT LOWER ABDOMEN WITH LOW GRADE FEVER. SHE HAS R SIDE HYDRONEPHROSIS WITH URETER GOING INTO POST DIAPHRAGMATIC HERNIA LEADING TO BLOCKAGE AND PAIN. I CALLED DR. RYAN DR. ELLIS IS NOT SUPERVIS[employer]. HE WILL SEE THE PATIENT SOON AND I SENT HER HOME WITH THE PLAN. HE HAS NEVER SEEN A CASE LIKE THIS. HE WILL RELIVE THE URETER AND ALSO CALL IN A GI SURGEON TO REPAIR THE HERNIA IN THE BACK OF DIAPHRAGM. Vital Signs/Physical Exam: Temp Pulse Resp BP Pulse Ox 97.6 F 70 16 102/49 L 91 02/10/25 08:00 02/10/25 08:00 02/10/25 08:00 02/10/25 08:00 02/10/25 08:00 Laboratory Data at Discharge: WBC 6.00 thou/uL (4.3-10.9) 02/10/25 06:24 Hgb 10.9 g/dL (12.0-15.0) L D 02/10/25 06:24 Hct 33.0 % (36.0-45.0) L 02/10/25 06:24 Plt Count 348 thou/uL (152-406) D 02/10/25 06:24 PT 12.7 SECONDS (10-13.0) 02/10/25 06:24 INR 1.12 02/10/25 06:24 APTT 29.6 SECONDS (27.2-37.4) 02/10/25 06:24 Sodium 141 mEq/L (136-145) 02/10/25 06:24 Potassium 3.7 mEq/L (3.5-5.1) 02/10/25 06:24 BUN 19 mg/dL (7-18) H 02/10/25 06:24 Creatinine 0.86 mg/dL (0.55-1.02) 02/10/25 06:24 Glucose 100 mg/dL (74-106) 02/10/25 06:24 Phosphorus 3.9 mg/dL (2.5-4.9) 02/09/25 15:26 Magnesium 2.2 mg/dL (1.6-2.4) 02/10/25 06:24 Total Bilirubin 0.4 mg/dL (0.2-1.0) 02/09/25 15:26 AST 24 U/L (15-37) 02/09/25 15:26 ALT 19 U/L (13-56) 02/09/25 15:26 Alkaline Phosphatase 109 U/L (45-117) 02/09/25 15:26 Home Medications: Hydrocodone Bit/Acetaminophen [Hydrocodon-Acetaminophen 5-325] 1 each PO Q4H PRN 09/12/15 Ofloxacin Oph [Floxin Otic 0.3%*] 5 gtt OP BID 09/12/15 levoFLOXacin [Levaquin] 500 mg PO DAILY #10 tab 09/13/15 Atorvastatin Calcium [Lipitor*] See Protocol PO BEDTIME 02/09/25 Gabapentin 800 mg PO BEDTIME 02/09/25 Omeprazole 20 mg PO DAILY 02/09/25 PARoxetine HCL [Paxil] 30 mg PO BEDTIME 02/09/25 Followup: Juve Haynes MD [ACTIVE - CAN ADMIT] - 1-2 Weeks
== END 2025-02-10 10:27 | disposition home or self-care (01) ==
LOC: ERHOLD 16:15 → 4TH 16:40
PROVIDERS: ADMIT Internal Medicine; ATTEND Internal Medicine
DX: N13.30 Unspecified hydronephrosis (principal); K46.0 Unspecified abdominal hernia with obstruction, without gangrene; E27.9 Disorder of adrenal gland, unspecified
CPT/HCPCS: 36415; 71046; 74177; 80048; 80076; 81003; 82607; 82652; 83735; 84100; 84443; 85025; 85610; 85730; J0744; J1650; Q9967